=== PATIENT | female | born 1935 | race Caucasian/White ===

== ENCOUNTER 2020-11-13 20:09 | Observation (INO) | payer MEDICARE, BC ==
[2020-11-13] MEDS ORDERED: SODIUM CHLORIDE 0.9% 500 ML 500 ML IV STA (20:51)
[2020-11-13 21:50] LABS: Basophils # (A) 0.1 k/uL (0-0.2); Basophils % (A) 1 %; Eosinophils # (A) 0.4 k/uL (0-0.7); Eosinophils % (A) 6 %; HCT 38.5 % (34.0-46.0); HGB 13.3 gm/dL (11.4-16.0); Lymphocytes # (A) 1.7 k/uL (1.0-4.8); Lymphocytes % (A) 26 %; MCH 30.5 pg (25.0-35.0); MCHC 34.5 g/dL (31.0-37.0); MCV 88.4 fL (80.0-100.0); Monocytes # (A) 0.6 k/uL (0-1.0); Monocytes % (A) 8 %; Neutrophils % (A) 58 %; Platelet Count 177 k/uL (150-450); RBC 4.36 m/uL (3.80-5.40); RDW 13.3 % (11.5-15.5); WBC 6.8 k/uL (3.8-10.6)
--- NOTE | 2020-11-13 21:58 | XR ---
EXAMINATION: XR chest 1V portable DATE AND TIME: 11/13/2020 9:05 PM CLINICAL INDICATION: PHH; chest pain TECHNIQUE: AP upright portable COMPARISON: None FINDINGS: There is a coarse reticular pattern throughout the lung, having the radiographic appearance of chroni c interstitial lung change. No definite acute lung radiographic process. The pleural spaces are negative. The cardiac silhouette is not enlarged. The remainder of the mediastinal silhouette is unremarkable. The skeletal structures and soft tissues are negative for acute findings. IMPRESSION: No definite acute radiographic process.
[2020-11-13 22:06] LABS: ALT 18 U/L (4-34); AST 29 U/L (14-36); African American GFR (CKD) >90 (>60 ml/min/1.73 sqM); Albumin 4.5 g/dL (3.5-5.0); Alkaline Phosphatase 91 U/L (38-126); Anion Gap 7 mmol/L; Blood Urea Nitrogen 22 mg/dL (7-17); Calcium 9.8 mg/dL (8.4-10.2); Carbon Dioxide 28 mmol/L (22-30); Chloride 108 mmol/L (98-107); Glucose 111 mg/dL (74-99); Non-African American GFR(CKD) 79 (>60 ml/min/1.73 sqM); Potassium 3.8 mmol/L (3.5-5.1); Sodium 143 mmol/L (137-145); Total Bilirubin 0.7 mg/dL (0.2-1.3); Total Protein 7.4 g/dL (6.3-8.2)
[2020-11-13 22:33] LABS: D-Dimer 0.27 mg/L FEU (<0.60); Partial Thromboplastin Time 22.7 sec (22.0-30.0)
[2020-11-13] MEDS ORDERED: ACETAMINOPHEN TAB 325 MG TAB PO PRN (23:32)
[2020-11-13] MEDS ORDERED: NALOXONE 0.4 MG/ML 1 ML VIAL IV PRN (23:32)
--- NOTE | 2020-11-13 23:32 | ED ---
General Adult HPI - General Chief complaint: Headache Stated complaint: Not feeling right Time Seen by Provider: 11/13/20 20:31 Source: patient, family Mode of arrival: ambulatory Limitations: no limitations - History of Present Illness Initial comments: 84 year-old female patient with past medical history significant for hypertension and TIA presents to the emergency department for evaluation of chest tightness, shortness of breath, generalized weakness, and headache. Patient states symptoms started earlier today and did not resolve. States she became anxious and called her daughter to bring her to the emergency department. Patient states that the headache is posterior and dull. She denies any blurred or double vision. States she had some tingling to her bilateral hands and felt generally weak. States she was able to walk and use all extremities without difficulty. She states that her chest became somewhat tight and she was having some mild shortness of breath. She denies any recent fall or head injury. Denies any new medications. Patient denies any recent rash, cough, abdominal pain, nausea, vomiting, diarrhea, constipation, back pain, dizziness, hematuria, dysuria, urinary urgency, urinary frequency, or any other complaints. - Related Data Home Medications Medication Instructions Recorded Confirmed Aspirin EC [Ecotrin] 81 mg PO DAILY 09/30/14 09/30/14 Latanoprost 1 drop BOTH EYES HS 09/30/14 09/30/14 Previous Rx's Medication Instructions Recorded Hydrocodone/Acetaminophen [[place] 1 - 2 each PO Q6HR PRN #40 tab 10/02/14 5-325] Allergies Allergy/AdvReac Type Severity Reaction Status Date / Time No Known Allergies Allergy Verified 11/13/20 20:21 Review of Systems ROS Statement: Those systems with pertinent positive or pertinent negative responses have been documented in the HPI. ROS Other: All systems not noted in ROS Statement are negative. Past Medical History Past Medical History: Cancer, Deep Vein Thrombosis (DVT), GERD/Reflux, Osteoarthritis (OA) Additional Past Medical History / Comment(s): SKIN CA LEG., RT LOWER BACK PAIN, HX OF LYMES DISEASE. GLAUCOMA. History of Any Multi-Drug Resistant Organisms: None Reported Additional Past Surgical History / Comment(s): PHILLIP CATARACTS, D&C, MUSCLE BX. Past Anesthesia/Blood Transfusion Reactions: No Reported Reaction, Family History of Problems w/ Anesthesia Additional Past Anesthesia/Blood Transfusion Reaction / Comment(s): SISTER WOKE UP CONFUSED. Past Psychological History: No Psychological Hx Reported Smoking Status: Never smoker Past Alcohol Use History: Occasional Past Drug Use History: None Reported - Past Family History Sister(s) Family Medical History: Cancer Additional Family Medical History / Comment(s): KIDNEY CA General Exam Limitations: no limitations General appearance: alert, in no apparent distress, other (This is a well- developed, well-nourished elderly female patient in no acute distress. Vital signs upon presentation are temperature 97.9F, pulse 71, respirations 18, blood pressure 206/98, pulse ox 100% on room air.) Eye exam: Present: normal appearance, PERRL, EOMI. Absent: scleral icterus, conjunctival injection, nystagmus, periorbital swelling ENT exam: Present: normal exam, normal oropharynx, mucous membranes moist Respiratory exam: Present: normal lung sounds bilaterally. Absent: respiratory distress, wheezes, rales, rhonchi, stridor Cardiovascular Exam: Present: regular rate, normal rhythm, normal heart sounds. Absent: systolic murmur, diastolic murmur, rubs, gallop, clicks GI/Abdominal exam: Present: soft, normal bowel sounds. Absent: distended, tenderness, guarding, rebound, rigid Neurological exam: Present: alert, oriented X3, CN II-XII intact Expanded Speech: Present: fluid speech Cranial nerves: EOM's Intact: Normal, Nystagmus: Normal Motor strength exam: RUE: 5, LUE: 5, RLE: 5, LLE: 5 Psychiatric exam: Present: normal affect, normal mood Skin exam: Present: warm, dry, intact, normal color. Absent: rash Course Vital Signs 11/13/20 20:21 Temperature 97.9 F Pulse Rate 71 Respiratory 18 Rate Blood Pressure 206/98 O2 Sat by Pulse 100 Oximetry EKG Findings - EKG Comments: EKG Findings:: EKG obtained at 2137 shows sinus bradycardia with a sinus arrhythmia, right bundle branch block, left anterior fascicular block. Ventricular rate is 58, IL interval 168, QRS duration 136, QT 476, QTc 467. Medical Decision Making - Medical Decision Making 84-year-old female patient presents to the emergency Department with multiple complaints including generalized weakness, chest tightness, headache, shortness of breath. Physical examination was unremarkable. She is neurologically intact with no focal deficits. EKG was obtained and did show sinus bradycardia with a sinus arrhythmia and a bifasicular block. Labs reviewed and were unremarkable. We have no previous EKGs to compare. She'll be admitted to the hospital for serial troponin, cardiac monitoring, and further evaluation. She is agreeable this plan. Dr. Young is excepting. Case discussed by attending Dr. Castaneda. - Lab Data Result diagrams: 11/13/20 21:17 11/13/20 21:17 Lab Results 11/13/20 11/13/20 11/13/20 Range/Units 21:17 21:17 21:17 WBC 6.8 (3.8-10.6) k/uL RBC 4.36 (3.80-5.40) m/uL Hgb 13.3 (11.4-16.0) gm/dL Hct 38.5 (34.0-46.0) % MCV 88.4 (80.0-100.0) fL MCH 30.5 (25.0-35.0) pg MCHC 34.5 (31.0-37.0) g/dL RDW 13.3 (11.5-15.5) % Plt Count 177 (150-450) k/uL MPV 8.0 Neutrophils % 58 % Lymphocytes % 26 % Monocytes % 8 % Eosinophils % 6 % Basophils % 1 % Neutrophils # 4.0 (1.3-7.7) k/uL Lymphocytes # 1.7 (1.0-4.8) k/uL Monocytes # 0.6 (0-1.0) k/uL Eosinophils # 0.4 (0-0.7) k/uL Basophils # 0.1 (0-0.2) k/uL PT 11.0 (9.0-12.0) sec INR 1.0 (<1.2) APTT 22.7 (22.0-30.0) sec D-Dimer 0.27 (<0.60) mg/L FEU Sodium 143 (137-145) mmol/L Potassium 3.8 (3.5-5.1) mmol/L Chloride 108 H (98-107) mmol/L Carbon Dioxide 28 (22-30) mmol/L Anion Gap 7 mmol/L BUN 22 H (7-17) mg/dL Creatinine 0.71 (0.52-1.04) mg/dL Est GFR (CKD-EPI)AfAm >90 (>60 ml/min/1.73 sqM) Est GFR (CKD-EPI)NonAf 79 (>60 ml/min/1.73 sqM) Glucose 111 H (74-99) mg/dL Calcium 9.8 (8.4-10.2) mg/dL Magnesium 2.0 (1.6-2.3) mg/dL Total Bilirubin 0.7 (0.2-1.3) mg/dL AST 29 (14-36) U/L ALT 18 (4-34) U/L Alkaline Phosphatase 91 (38-126) U/L Troponin I (0.000-0.034) ng/mL Total Protein 7.4 (6.3-8.2) g/dL Albumin 4.5 (3.5-5.0) g/dL Influenza Type A (PCR) (Not Detectd) Influenza Type B (PCR) (Not Detectd) RSV (PCR) (Not Detectd) SARS-CoV-2 (PCR) (Not Detectd) 11/13/20 11/13/20 Range/Units 21:17 21:17 WBC (3.8-10.6) k/uL RBC (3.80-5.40) m/uL Hgb (11.4-16.0) gm/dL Hct (34.0-46.0) % MCV (80.0-100.0) fL MCH (25.0-35.0) pg MCHC (31.0-37.0) g/dL RDW (11.5-15.5) % Plt Count (150-450) k/uL MPV Neutrophils % % Lymphocytes % % Monocytes % % Eosinophils % % Basophils % % Neutrophils # (1.3-7.7) k/uL Lymphocytes # (1.0-4.8) k/uL Monocytes # (0-1.0) k/uL Eosinophils # (0-0.7) k/uL Basophils # (0-0.2) k/uL PT (9.0-12.0) sec INR (<1.2) APTT (22.0-30.0) sec D-Dimer (<0.60) mg/L FEU Sodium (137-145) mmol/L Potassium (3.5-5.1) mmol/L Chloride (98-107) mmol/L Carbon Dioxide (22-30) mmol/L Anion Gap mmol/L BUN (7-17) mg/dL Creatinine (0.52-1.04) mg/dL Est GFR (CKD-EPI)AfAm (>60 ml/min/1.73 sqM) Est GFR (CKD-EPI)NonAf (>60 ml/min/1.73 sqM) Glucose (74-99) mg/dL Calcium (8.4-10.2) mg/dL Magnesium (1.6-2.3) mg/dL Total Bilirubin (0.2-1.3) mg/dL AST (14-36) U/L ALT (4-34) U/L Alkaline Phosphatase (38-126) U/L Troponin I <0.012 (0.000-0.034) ng/mL Total Protein (6.3-8.2) g/dL Albumin (3.5-5.0) g/dL Influenza Type A (PCR) Not Detected (Not Detectd) Influenza Type B (PCR) Not Detected (Not Detectd) RSV (PCR) Not Detected (Not Detectd) SARS-CoV-2 (PCR) Not Detected (Not Detectd) - Radiology Data Radiology results: report reviewed, image reviewed One view x-ray of the chest is obtained. Report was reviewed in its entirety. Impression by Dr. Beau Champion shows no definite acute radiographic process. Disposition Clinical Impression: Chest tightness, Weakness Disposition: ADMITTED IP TO THIS [facility] Condition: Serious Referrals: Edward Melendrez MD [Primary Care Provider] - 1-2 days Decision to Admit Reason: Admit from EC Decision Date: 11/13/20 Decision Time: 23:32
--- NOTE | 2020-11-14 01:24 | P.HPIM ---
History of Present Illness H&P Date: 11/13/20 Chief Complaint: headache, tingling in bilateral hands 84 year old female with history of TIA (04/2020) COPD not on home oxygen , hypertension patient experienced sudden onset occipital headache, around 6 pm, associated with some tingling in her hands. for which she became really worried and anxious as it was similar to prior episode of TIA when she was found to have elevated blood pressure and had some difficulty walking at that time. she was concerned and because there was no improvement in her symptoms , she asked her daughter to get her to the ED after 2 hours of symptoms , to get evaluated. she denies any focal neuro deficits. except for bilateral tingling in her hands. since her recent diagnosis with TIA , she has been on lipitor , brilinta , and aspirin , she denies any GI bleeding she is currently feeling back to normal she denies any chest pain , trouble breathing, syncope, gi bleeding, nausea, vomiting, fever, chills, URI symptoms . in the ED, she was found to have elevated blood pressure. EKG showed no acute ST elevation, but without having recent EKG to compare, she is showing possible sinus arrhythmia and bradycardia blood work overall unremarkable Review of Systems Pertinent positives as noted in HPI. All other systems were reviewed and are negative Past Medical History Past Medical History: Cancer, Deep Vein Thrombosis (DVT), GERD/Reflux, Osteoarthritis (OA) Additional Past Medical History / Comment(s): SKIN CA LEG., RT LOWER BACK PAIN, HX OF LYMES DISEASE. GLAUCOMA. History of Any Multi-Drug Resistant Organisms: None Reported Additional Past Surgical History / Comment(s): PHILLIP CATARACTS, D&C, MUSCLE BX. Past Anesthesia/Blood Transfusion Reactions: No Reported Reaction, Family History of Problems w/ Anesthesia Additional Past Anesthesia/Blood Transfusion Reaction / Comment(s): SISTER WOKE UP CONFUSED. Past Psychological History: No Psychological Hx Reported Smoking Status: Never smoker Past Alcohol Use History: Occasional Past Drug Use History: None Reported - Past Family History Sister(s) Family Medical History: Cancer Additional Family Medical History / Comment(s): KIDNEY CA Medications and Allergies Home Medications Medication Instructions Recorded Confirmed Type Aspirin EC [Ecotrin] 81 mg PO DAILY 09/30/14 09/30/14 History Latanoprost 1 drop BOTH EYES HS 03/16/15 03/16/15 History Hydrocodone/Acetaminophen [[place] 1 - 2 each PO Q6HR PRN #40 tab 10/02/14 Rx 5-325] Allergies Allergy/AdvReac Type Severity Reaction Status Date / Time No Known Allergies Allergy Verified 11/13/20 20:21 Physical Exam Vitals: Vital Signs Temp Pulse Resp BP Pulse Ox 11/13/20 23:57 65 18 157/87 98 11/13/20 20:21 97.9 F 71 18 206/98 100 Intake and Output 11/13/20 11/13/20 11/14/20 14:59 22:59 06:59 Other: Weight 58.967 kg Constitutional: No acute distress, conversant, pleasant Eyes: Anicteric sclerae, moist conjunctiva, Pupils equal round reactive to light ENMT: NC/AT Oropharynx clear, no erythema, or exudates Neck: Supple, FROM, no masses, or JVD No carotid bruits No thyromegaly Lungs: Clear to auscultation Clear to percussion Normal respiratory effort, no accessory muscle use Cardiovascular: Heart regular in rate and rhythm, No murmurs, gallops, or rubs No peripheral edema Abdominal: Soft Nontender, no guarding, rebound or rigidity Abdomen moving with respiration Normoactive bowel sounds No hepatomegaly, No splenomegaly No palpable mass No abdominal wall hernia noted Skin: Normal temperature, tone, texture, turgor No induration No subcutaneous nodules No rash, lesions No ulcers Extremities: No digital cyanosis No clubbing Pedal pulses intact and symmetrical Radial pulses intact and symmetrical No calf tenderness Psychiatric: Alert and oriented to person, place Appropriate affect fair judgement Neuro Muscles Strength 5/5 in all 4 extremities Sensation to light touch grossly present throughout Cranial nerves II-XII grossly intact No focal sensory deficits Lymphatics: no palpable cervical or supraclavicular , or inguinal lymph nodes Results CBC & Chem 7: 11/13/20 21:17 11/13/20 21:17 Labs: Abnormal Lab Results - Last 24 Hours (Table) 11/13/20 Range/Units 21:17 Chloride 108 H (98-107) mmol/L BUN 22 H (7-17) mg/dL Glucose 111 H (74-99) mg/dL Assessment and Plan Assessment: malignant hypertension (with headache), monitor for any focal neuro deficits close monitor of blood pressure clonidine PRN for systolic blood pressure >180 resume home BP meds follow up renal function telemetry monitor COPD , compensated , not on home oxygen PRN duoneb PT eval verify home meds Surrogate decision-maker: patient daughter Gypsy [phone] CODE STATUS:no code DVT prophylaxis: mechanical Discussed with: Patient, ER Anticipated length of stay <than [address]: home A total of 70 minutes was spent on the care of this complex patient more than 50% of the time was spent in counseling and care coordination.
[2020-11-14] MEDS ORDERED: cloNIDine HCL 0.2 MG TAB PO PRN (01:25)
[2020-11-14 05:21] LABS: Basophils % (A) 1 %; Eosinophils # (A) 0.2 k/uL (0-0.7); Eosinophils % (A) 5 %; HCT 33.7 % (34.0-46.0); HGB 11.7 gm/dL (11.4-16.0); Lymphocytes # (A) 1.1 k/uL (1.0-4.8); Lymphocytes % (A) 23 %; MCH 30.5 pg (25.0-35.0); MCHC 34.7 g/dL (31.0-37.0); MCV 88.1 fL (80.0-100.0); Monocytes # (A) 0.4 k/uL (0-1.0); Monocytes % (A) 8 %; Neutrophils # (A) 3.2 k/uL (1.3-7.7); Neutrophils % (A) 63 %; Platelet Count 162 k/uL (150-450); RBC 3.83 m/uL (3.80-5.40); RDW 13.4 % (11.5-15.5); WBC 5.1 k/uL (3.8-10.6)
[2020-11-14 05:38] LABS: African American GFR (CKD) >90 (>60 ml/min/1.73 sqM); Anion Gap 5 mmol/L; Blood Urea Nitrogen 16 mg/dL (7-17); Carbon Dioxide 26 mmol/L (22-30); Chloride 110 mmol/L (98-107); Glucose 114 mg/dL (74-99); Non-African American GFR(CKD) 83 (>60 ml/min/1.73 sqM); Potassium 3.4 mmol/L (3.5-5.1); Sodium 141 mmol/L (137-145)
[2020-11-14] MEDS ORDERED: Potassium Replacement Protocol 1 EACH MISC MISCELLANE PRN (07:29)
[2020-11-14] MEDS: ASPIRIN 81 MG PO SCH (08:43)
[2020-11-14] MEDS: ATORVASTATIN 40 MG TAB PO SCH (08:44)
[2020-11-14] MEDS: POTASSIUM CHLORIDE 10 MEQ in WATER FOR INJECTION 1 100ML.BAG IVPB SCH ×2 (08:44→09:49)
[2020-11-14] MEDS ORDERED: amLODIPine 5 MG TAB PO SCH (09:00)
[2020-11-14] MEDS ORDERED: POTASSIUM CHLORIDE ER 20 MEQ TAB.ER PO STA (09:52)
--- NOTE | 2020-11-14 10:02 | P.PN ---
Subjective Progress Note Date: 11/14/20 Patient is awake and alert. She is very vague in describing her symptoms. She said that she is having a mild headache in the back of her head associated with the ''swoosh'' feeling or noise that she can hear in both ears. She denies any dizziness or lightheadedness. No nausea or vomiting. Patient denies any numbness or tingling anywhere. She has a prior history of a TIA and is maintained on aspirin and Brillenta. 1. Hypertensive urgency, exact etiology unclear. Patient said that she is aching her medications as prescribed at home. Her med rec was not completed this morning so I ordered a one-time dose of Norvasc 5 mg. Blood pressure currently well controlled. structural engineering technician was able to reconcile her medication and patient is on losartan 50 mg daily at home which will be resumed. Continue to monitor blood pressure closely. 2. Occipital headache with a ''swoosh''feeling in her ear: I would obtain CT angiogram of the head and neck for further evaluation. Neurology consulted. 3. History of TIA on dual antiplatelet therapy 4. Underlying COPD with no evidence of exacerbation 5. DVT prophylaxis with subcu Lovenox 6. CODE STATUS: Patient is no code, discussed with the admitting physician Objective - Vital Signs Vital signs: Vital Signs Temp 97.8 F 11/14/20 08:00 Pulse 72 11/14/20 08:00 Resp 16 11/14/20 08:00 BP 139/67 11/14/20 08:00 Pulse Ox 94 L 11/14/20 08:00 Intake & Output 11/13/20 11/14/20 11/14/20 18:59 06:59 18:59 Intake Total 10 Balance 10 Weight 57.2 kg Intake: IV 10 0.9 10 Other: Voiding Method Toilet # Voids 1 - Exam General: The patient is awake and alert, in no distress Eye: there is normal conjunctiva bilaterally. Neck: The neck is supple, there is no JVD. Cardiovascular: Normal S1-S2, no S3-S4, no murmurs. Respiratory: Lungs clear to auscultation bilaterally Gastrointestinal: Abdomen is soft, nontender Musculoskeletal: There is no pedal edema. Neurological:. Speech is normal. Skin: Skin is warm and dry - Labs CBC & Chem 7: 11/14/20 04:21 11/14/20 04:21 Labs: Abnormal Lab Results - Last 24 Hours (Table) 11/13/20 11/14/20 11/14/20 Range/Units 21:17 04: 04:21 Hct 33.7 L (34.0-46.0) % Potassium 3.4 L (3.5-5.1) mmol/L Chloride 108 H 110 H (98-107) mmol/L BUN 22 H (7-17) mg/dL Glucose 111 H 114 H (74-99) mg/dL Assessment and Plan Assessment: This is a 84-year-old female with past medical history noted below that presented to the emergency room with vague symptoms of occipital headache and tingling in both hands. Patient was evaluated in the ER and currently admitted to the hospital for further management of her medical problems noted below.
--- NOTE | 2020-11-14 12:22 | CT ---
EXAMINATION TYPE: CT angio head neck DATE OF EXAM: 11/14/2020 HISTORY: Headache, Weakness COMPARISON: None CT DLP: 1473.2 mGycm. Automated Exposure Control for Dose Reduction was Utilized. TECHNIQUE: CTA scan of the neck is performed without and with IV Contrast, patient injected with 65 mL of Isovue 370, axial images are obtained, coronal and sagittal reformatted images are reviewed. Th ree-D reconstructed images are created on an independent workstation and reviewed. FINDINGS: There is generalized degenerative change. Intracranial atherosclerotic changes are noted. N onspecific white matter changes most typical remote ischemia. Vertebral basilar system is patent. Intracranially there is enhancement of the distal carotid arterie s as well as the middle cerebral and anterior cerebral arteries. No sizable aneurysm. No vascular mal formation. Aortic arch appears to be patent. Subcentimeter thyroid no nodules are seen. Origins of the great ves sels appear to be patent. There is atherosclerotic plaque at the level of the carotid bifurcations wi th no significant stenosis. Dental artifact obscures the soft tissues of the neck. Lung apices demons trate apical pleural thickening greater on the right with scattered groundglass changes. Multilevel d egenerative change of the cervical spine facet arthropathy. IMPRESSION: 1. No significant stenosis involving the carotid bifurcation 2. No evidence of aneurysm or vascular malformation. 3. Biapical pleural thickening asymmetrically greater on the right. Groundglass changes in the lungs could been the basis of respiratory motion or pneumonitis correlate clinically.
[2020-11-14] MEDS: ENOXAPARIN 40 MG/0.4 ML SYRINGE SQ SCH (12:37)
--- NOTE | 2020-11-14 12:47 | ECHOF ---
Referral Reason:lightheadedness MEASUREMENTS -------- HEIGHT: 165.1 cm WEIGHT: 61.7 kg BP: RVIDd: 3.4 cm (< 3.3) IVSd: 1.2 cm (0.6 - 1.1) LVIDd: 3.6 cm (3.9 - 5.3) LVPWd: 1.5 cm (0.6 - 1.1) IVSs: 1.5 cm LVIDs: 1.9 cm LVPWs: 1.7 cm Ao Diam: 3.2 cm (2.0 - 3.7) AV Cusp: 1.8 cm (1.5 - 2.6) RAP: 5.00 mmHg RVSP: 14.60 mmHg FINDINGS -------- Sinus rhythm. This was a technically difficult study with suboptimal views. All Views obtained subcostal. LV size, wall thickness and systolic function are normal, with an EF greater than 55%. The left reginaldo tricular size is normal. The right ventricle is normal in size. The left atrial size is normal. The right atrial size is normal. The aortic valve was not well visualized. The mitral valve leaflets are mildly thickened. Mild mitral regurgitation is present. Mild tricuspid regurgitation present. Right ventricular systolic pressure is normal at < 35 mmHg. The pulmonic valve was not well visualized. The aortic root size is normal. There is no pericardial effusion. CONCLUSIONS -------- 1. This was a technically difficult study with suboptimal views. 2. All Views obtained subcostal. 3. LV size, wall thickness and systolic function are normal, with an EF greater than 55%. 4. The left atrial size is normal. 5. The aortic valve was not well visualized. 6. Mild mitral regurgitation is present. 7. Mild tricuspid regurgitation present. 8. There is no pericardial effusion. GEOLOGY FACULTY MEMBER: Connie Rodriguez RDCS
--- NOTE | 2020-11-14 14:25 | P.CNNES ---
History of Present Illness Consult date: 11/14/20 Requesting physician: Shanta Marcos Reason for Consult: headache and ringing in ears History of Present Illness: This is a 84-year-old woman with medical history of present ischemic attack on April 2020, COPD, DVT, which she presented to the hospital on 11/13/2020 for sudden onset of occipital headache associate with some tingling in her hands that started at 6 PM on 11/13/2020. Patient is a poor historian and some of the history is obtained from medical records. According to the patient she's been having headache in the occipital region it seems bilateral and she cannot tell me for how long per the primary team's note it's started 2 days ago but the patient stated it could've been 2 days ago or last 1 week or 2 weeks. She said the headache is well 1-2/10, dull, doesn't radiate. Denies any photophobia, phonophobia and nausea or vomiting or visual disturbance. She has this whooshing sound. Upon asking her if she had any tingling of the hands, patient's wishes to get about it she said I don't know Dr. then upon asking her the if she had any numbness or tingling and she said yes and that was possibly 2 days ago or the last 1 week. She denies of any focal weakness, numbness. Denies any difficulty getting her words out swallowing. She stated that her blood pressure fluctuates. Patient on medication is Brilinta 90 mg 1 tablet twice a day, aspirin 81 mg daily, Lipitor 40 mg daily. Upon asking the patient symptoms of her transient ischemic attack in April 2020 she said that she doesn't remember and she said that she was in the hospital and she was told she had transient ischemic attack. Per the ED team note, the patient had headache in occipital region with some tingling of hand. Patient symptoms didn't resolve so as a result the patient the asked her daughter to get her to the ED after 2 hours her symptoms to be evaluated. Patient stated that she had similar episodes in the past and she was told she had a TIA and was found to have elevated blood pressure. Also last time she had difficulty walking. Because her symptoms do not resolve after 2 hours she decided to come to the hospital. Some other workup in the hospital consisted of: Initial vital signs his blood pressure of 206/98, heart rate of 71, temperature of 97.9 Fahrenheit oral, respiratory of 18, pulse ox of 100% at room air. Patient repeated blood pressure is 157/87 but then she had further blood pressure check up and was 196/75. CT angiography of the head and neck was reported as no significant stenosis involving the carotid bifurcation. No evidence of aneurysm or vascular malformation. Biapical pleural thickening asymmetrical greater on the right. Groundglass changes in the long could be on the basis of respiratory motion or pneumonitis correlate clinically 2-D echo was reported as this was technically difficult study with suboptimal views. Left ventricular size, wall thickness and systolic function are normal with ejection fracture greater than 55%. Left atrial size is normal. Basic electrolyte panel shows that the glucose was 111 otherwise it was reviewed and nothing was significant. As well as the CBC was reviewed and nothing was significant that. SARS-COV-2 PCR is not detected. Review of Systems Review of system: The 12 point system was reviewed and apparent positive and negative per HPI. Past Medical History Past Medical History: Cancer, Deep Vein Thrombosis (DVT), GERD/Reflux, Osteoarth ritis (OA) Additional Past Medical History / Comment(s): SKIN CA LEG., RT LOWER BACK PAIN, HX OF LYMES DISEASE. GLAUCOMA. History of Any Multi-Drug Resistant Organisms: None Reported Additional Past Surgical History / Comment(s): PHILLIP CATARACTS, D&C, MUSCLE BX. Past Anesthesia/Blood Transfusion Reactions: No Reported Reaction, Family History of Problems w/ Anesthesia Additional Past Anesthesia/Blood Transfusion Reaction / Comment(s): SISTER WOKE UP CONFUSED. Past Psychological History: No Psychological Hx Reported Smoking Status: Never smoker Past Alcohol Use History: Occasional Past Drug Use History: None Reported - Past Family History Sister(s) Family Medical History: Cancer Additional Family Medical History / Comment(s): KIDNEY CA Medications and Allergies Home Medications Medication Instructions Recorded Confirmed Type Aspirin EC [Ecotrin] 81 mg PO DAILY 09/30/14 11/14/20 History Latanoprost 1 drop BOTH EYES HS 09/30/14 11/14/20 History Atorvastatin [Lipitor] 40 mg PO HS 11/14/20 11/14/20 History Losartan Potassium 50 mg PO DAILY 11/14/20 11/14/20 History Ticagrelor [Brilinta] 90 mg PO BID 11/14/20 11/14/20 History Allergies Allergy/AdvReac Type Severity Reaction Status Date / Time No Known Allergies Allergy Verified 11/14/20 08:38 Physical Examination - Vital Signs Vital Signs: Vital Signs Temp Pulse Pulse Resp BP BP BP 11/14/20 13:08 98.5 F 11/14/20 12:45 78 17 138/71 11/14/20 08:00 97.8 F 72 16 139/67 11/14/20 07:26 11/14/20 04:00 97.6 F 76 18 147/76 11/14/20 02:08 182/79 181/99 11/14/20 02:00 74 18 11/14/20 01:39 97.5 F L 74 18 196/75 11/13/20 23:57 65 18 157/87 11/13/20 20:21 97.9 F 71 18 206/98 Pulse Ox 11/14/20 13:08 11/14/20 12:45 97 11/14/20 08:00 94 L 11/14/20 07:26 96 11/14/20 04:00 97 11/14/20 02:08 11/14/20 02:00 11/14/20 01:39 98 11/13/20 23:57 98 11/13/20 20:21 100 Intake and Output 11/13/20 11/14/20 11/14/20 22:59 06:59 14:59 Intake Total 10 Balance 10 Intake: IV 10 0.9 10 Other: Voiding Method Toilet # Voids 1 Weight 58.967 kg 57.2 kg GENERAL: The patient is lying in bed and is not in acute distress. CHEST: The heart rate is regular rate rhythm. No murmurs to auscultation. No carotid bruit bilaterally. LUNG: Clear to auscultation bilaterally no wheezing noted throughout. Not labored breathing. ABDOMEN/GI: Bowel sounds present in all 4 quadrants. No tenderness to palpation throughout. NEUROLOGICAL: Higher mental function: The patient is awake, alert, oriented to self, place and time. Patient is following commands. No aphasia and no neglect. Cranial nerves: The pupils are round, equal and reactive to light and accommodation. Visual zamorano are full to confrontation throughout. Extraocular movement is intact no nystagmus is noted. Facial sensation is normal to touch throughout. The facial strength is normal throughout. Hearing is decreased bilaterally to hand rub. Tongue is midline and moved [id number] without any difficulty. No dysarthria is noted. Shoulder shrug is normal bilaterally. Motor: Gait: Patient was unsteady walking. The strength is 4+ to 5-/5 over the left knee extension. Otherwise 5 over 5 throughout. Normal tone and bulk. Cerebellum: Normal finger to nose bilaterally. Sensation: Sensation is normal to touch throughout. Reflexes (right/left): Patellar are 3+ bilaterally. Otherwise 2+ throughout. Plantars are mute bilaterally. Results Coagulation study: PT 11, INR 1.0, PTT: 2.7 - Laboratory Findings CBC and BMP: 11/14/20 04:21 11/14/20 04:21 Abnormal Lab Findings: Abnormal Labs 11/13/20 11/14/20 11/14/20 21:17 04:21 04:21 Hct 33.7 L Potassium 3.4 L Chloride 108 H 110 H BUN 22 H Glucose 111 H 114 H Assessment and Plan Assessment: * Patient cephalgia over the occipital region, tingling of hands, unsteady gait, whoosing sound of both years and left knee extension weakness (patient is a poor historian so could not find out exactly her symptoms and they started). Rule out stroke or other intracranial process. * Uncontrolled hypertension * History of TIA was similar presentation as above (04/2020) and that time her blood pressure was uncontrolled. I am not sure if she truly had TIA. * COPD Plan: CT angiography of the head and neck was reported as no significant stenosis involving the carotid bifurcation. No evidence of aneurysm or vascular malformation. Biapical pleural thickening asymmetrical greater on the right. Groundglass changes in the long could be on the basis of respiratory motion or pneumonitis correlate clinically 2-D echo was reported as this was technically difficult study with suboptimal views. Left ventricular size, wall thickness and systolic function are normal with ejection fracture greater than 55%. Left atrial size is normal. On Brilinta 90 mg 1 tablet twice a day, aspirin 81 mg daily, Lipitor 40 mg daily. After MRI Brain will make further recommendation regarding her antiplatelets. I ordered MRI Brain. Physical therapy is consulted. I consulted occupational therapy. Placed on every 4 hours neuro checks. Cardiology is consulted. Regarding the management of patient's hypertension, please avoid more than 15% drop and it within 24 hours. We'll defer the management to the primary team. The plan is discussed with the patient's nurse. Thank you for the consultation. Altaf Shah MD Neuro-Hospitalist Time with Patient: Greater than 30
--- NOTE | 2020-11-14 15:03 | P.CRDCN ---
History of Present Illness History of present illness: This is am 84 year-old female patient with past medical history significant for hypertension and TIA Fall 2019. She does not follow with a magazine feeder. We are being consulted for chest pain. Patient presents to the emergency department for evaluation of headache. Patient states yesterday in the afternoon started having a' "whooshing" sound in her bilateral ears and a dull ache in the back of her head. She had mild shortness of breath. She states that this was different from her TIA in the fall of 2019. At that time when she was walking she felt as if she was "walking on a cloud, taking big giant steps". She denies chest discomfort, palpitations, lightheadedness, dizziness, double vision, feelings of presyncope. Denies symptoms of orthopnea or PND. After her TIA she was prescrib ed aspirin and brilinta. She is unaware of what medications she takes for her blood pressure. She denies smoking or alcohol use. Denies history of MT, Diabetes, dyslipidemia. She has never had a cardiac workup. Denies family history of cardiac disease. On admission, patient was hypertensive. EKG showed sinus bradycardia HR 58, with right bundle branch block. DIAGNOSTICS Telemetry tracings indicate sinus mechanism heart rate 60s, no sign of arrhythmia Chest xray no acute cardiopulmonary process Laboratory reviewed, troponin negative 3, sodium 141, d-dimer 0.27, potassium 3.4, renal function within normal limits, magnesium 2.0, COVID-19 negative Current cardiac medications include losartan 50 mg daily, Brilinta 90 mg twice a day, aspirin 81 mg daily REVIEW OF SYSTEMS At the time of my exam: CONSTITUTIONAL: Denies fever or chills. CARDIOVASCULAR: Denies chest pain, shortness of breath, orthopnea, PND or palpitations. RESPIRATORY: Denies cough. GASTROINTESTINAL: Denies abdominal pain, diarrhea, constipation, nausea or vomiting. MUSCULOSKELETAL: Denies myalgias. NEUROLOGIC: Headache, bilateral ear changes Denies numbness, tingling, or weakness. ENDOCRINE: Denies fatigue, weight change, polydipsia or polyurina. GENITOURINARY: Denies burning, hematuria or urgency with micturation. HEMATOLOGIC: Denies history of anemia or bleeding. PHYSICAL EXAMINATION Blood pressure 138/71 heart rate 78 afebrile and maintaining oxygen saturation 97% on room air CONSTITUTIONAL: No apparent distress. HEENT: Head is normocephalic. Pupils are equal, round. Sclerae anicteric. Mucous membranes of the mouth are moist. No JVD. No carotid bruit. CHEST EXAMINATION: Lungs are clear to auscultation. No chest wall tenderness is noted on palpation or with deep breathing. HEART EXAMINATION: Regular rate and rhythm. S1, S2 heard. No murmurs, gallops or rub. ABDOMEN: Soft, nontender. Positive bowel sounds. EXTREMITIES: 2+ peripheral pulses, no lower extremity edema and no calf tenderness. NEUROLOGIC EXAMINATION: Patient is awake, alert and oriented x3. ASSESSMENT Hypertension History of TIA Headache, unknown etiology PLAN Patient symptoms do not appear to be cardiac related at this time. She denies any chest discomfort. EKG with no signs of ischemia. Cardiac enzymes negative Recommend Neurology consult Echocardiogram reviewed, EF greater than 55%, no wall motion abnormalities,mild MR, mild TR At this time, no further cardiology recommendations. Patient's BLood pressure has improved We will sign off at this time, please reach out with any other questions or concerns. Nurse Practitioner note has been reviewed, I agree with a documented findings and plan of care. Patient was seen and examined. Past Medical History Past Medical History: Cancer, Deep Vein Thrombosis (DVT), GERD/Reflux, Osteoarthritis (OA) Additional Past Medical History / Comment(s): SKIN CA LEG., RT LOWER BACK PAIN, HX OF LYMES DISEASE. GLAUCOMA. History of Any Multi-Drug Resistant Organisms: None Reported Additional Past Surgical History / Comment(s): PHILLIP CATARACTS, D&C, MUSCLE BX. Past Anesthesia/Blood Transfusion Reactions: No Reported Reaction, Family His tory of Problems w/ Anesthesia Additional Past Anesthesia/Blood Transfusion Reaction / Comment(s): SISTER WOKE UP CONFUSED. Past Psychological History: No Psychological Hx Reported Smoking Status: Never smoker Past Alcohol Use History: Occasional Past Drug Use History: None Reported - Past Family History Sister(s) Family Medical History: Cancer Additional Family Medical History / Comment(s): KIDNEY CA Medications and Allergies Home Medications Medication Instructions Recorded Confirmed Type Aspirin EC [Ecotrin] 81 mg PO DAILY 09/30/14 11/14/20 History Latanoprost 1 drop BOTH EYES HS 09/30/14 11/14/20 History Atorvastatin [Lipitor] 40 mg PO HS 11/14/20 11/14/20 History Losartan Potassium 50 mg PO DAILY 11/14/20 11/14/20 History Ticagrelor [Brilinta] 90 mg PO BID 11/14/20 11/14/20 History Allergies Allergy/AdvReac Type Severity Reaction Status Date / Time No Known Allergies Allergy Verified 11/14/20 08:38 Physical Exam Vitals: Vital Signs Temp Pulse Pulse Resp BP BP BP 11/14/20 04:00 97.6 F 76 18 147/76 11/14/20 02:08 182/79 181/99 11/14/20 02:00 74 18 11/14/20 01:39 97.5 F L 74 18 196/75 11/13/20 23:57 65 18 157/87 11/13/20 20:21 97.9 F 71 18 206/98 Pulse Ox 11/14/20 04:00 97 11/14/20 02:08 11/14/20 02:00 11/14/20 01:39 98 11/13/20 23:57 98 11/13/20 20:21 100 Intake and Output 11/13/20 11/14/20 11/14/20 22:59 06:59 14:59 Intake Total 10 Balance 10 Intake: IV 10 0.9 10 Other: Voiding Method Toilet # Voids 1 Weight 58.967 kg 57.2 kg Results 11/14/20 04:21 11/14/20 04:21 Cardiac Enzymes 11/13/20 11/13/20 11/14/20 Range/Units 21:17 21:17 00:54 AST 29 (14-36) U/L Troponin I <0.012 <0.012 (0.000-0.034) ng/mL 11/14/20 Range/Units 04: AST (14-36) U/L Troponin I <0.012 (0.000-0.034) ng/mL Coagulation 11/13/20 Range/Units 21:17 PT 11.0 (9.0-12.0) sec APTT 22.7 (22.0-30.0) sec CBC 11/13/20 11/14/20 Range/Units 21:17 04:21 WBC 6.8 5.1 (3.8-10.6) k/uL RBC 4.36 3.83 (3.80-5.40) m/uL Hgb 13.3 11.7 (11.4-16.0) gm/dL Hct 38.5 33.7 L (34.0-46.0) % Plt Count 177 162 (150-450) k/uL Comprehensive Metabolic Panel 11/13/20 11/14/20 Range/Units 21:17 04:21 Sodium 143 141 (137-145) mmol/L Potassium 3.8 3.4 L (3.5-5.1) mmol/L Chloride 108 H 110 H (98-107) mmol/L Carbon Dioxide 28 26 (22-30) mmol/L BUN 22 H 16 (7-17) mg/dL Creatinine 0.71 0.62 (0.52-1.04) mg/dL Glucose 111 H 114 H (74-99) mg/dL Calcium 9.8 9.0 (8.4-10.2) mg/dL AST 29 (14-36) U/L ALT 18 (4-34) U/L Alkaline Phosphatase 91 (38-126) U/L Total Protein 7.4 (6.3-8.2) g/dL Albumin 4.5 (3.5-5.0) g/dL Current Medications Generic Name Dose Route Start Last Admin Trade Name Freq PRN Reason Stop Dose Admin Acetaminophen 650 mg 11/13/20 23:32 Acetaminophen Tab 325 Mg Tab PO Q6HR PRN Mild Pain or Fever > 100.5 Aspirin 81 mg 11/14/20 09:00 Aspirin 81 Mg PO DAILY [facility] Atorvastatin Calcium 40 mg 11/14/20 09:00 Atorvastatin 40 Mg Tab PO DAILY [facility] Clonidine 0.2 mg 11/14/20 01:25 11/14/20 02:44 Clonidine Hcl 0.2 Mg Tab PO 0.2 mg TID PRN Administration Blood Pressure - High Naloxone HCl 0.2 mg 11/13/20 23:32 Naloxone 0.4 Mg/Ml 1 Ml Vial IV Q2M PRN Opioid Reversal Intake and Output 11/13/20 11/14/20 11/14/20 22:59 06:59 14:59 Intake Total 10 Balance 10 Intake: IV 10 0.9 10 Other: Voiding Method Toilet # Voids 1 Weight 58.967 kg 57.2 kg 11/14/20 04:21 11/14/20 04:21
--- NOTE | 2020-11-14 17:08 | MR ---
EXAMINATION TYPE: MR brain wo/w con DATE OF EXAM: 11/14/2020 COMPARISON: None HISTORY: Headache, unsteady gait, whoosing sound. CONTRAST: Standard multiplanar, multisequence MRI departmental protocol utilizing 6 mL intravenous Gadavist anabelle olinium contrast. There is cerebral atrophy. There is no mass effect nor midline shift. There is no sign of intracrania l hemorrhage. There is some thinning of the corpus callosum. The diffusion images show no evidence of an acute infarct. There is patchy increased signal on the T2 and FLAIR images in the periventricular white matter. Ther e is coalescent signal adjacent to the ventricles and discrete foci at the kumar-white matter junction both cerebral hemispheres. Total number is approximately 25 and these mostly measure less than 5 mm. Sella turcica is normal. Brainstem is intact. Cerebellum is intact. There is no pathologic enhancement. There is normal enhancement of the venous sinuses. IMPRESSION: Cerebral atrophy. White matter signal changes adjacent to the ventricles could relate to some demyeli nating disease. More peripheral white matter foci could relate to chronic small vessel ischemia. No e vidence of cortical infarct.
[2020-11-14] MEDS: TICAGRELOR 90 MG TAB PO SCH (20:08)
[2020-11-14] MEDS ORDERED: ATORVASTATIN 40 MG TAB PO SCH (21:00)
[2020-11-14] MEDS ORDERED: LATANOPROST 0.005% OPHTH DROPS 2.5 ML BTL BOTH EYES SCH (21:00)
[2020-11-15] MEDS: ATORVASTATIN 40 MG TAB PO SCH (08:18)
[2020-11-15] MEDS: TICAGRELOR 90 MG TAB PO SCH (08:18)
[2020-11-15] MEDS: ASPIRIN 81 MG PO SCH (08:19)
[2020-11-15] MEDS: ENOXAPARIN 40 MG/0.4 ML SYRINGE SQ SCH (08:19)
--- NOTE | 2020-11-15 08:27 | CT ---
EXAMINATION TYPE: CT cervical spine wo con DATE OF EXAM: 11/15/2020 COMPARISON: None HISTORY: unsteady gait and left leg weakness CT DLP: 356.2 mGycm Automated exposure control for dose reduction was used. TECHNIQUE: CT scan of the cervical spine is obtained without contrast, axial images are obtained, sa gittal and coronal reformatted images are also reviewed. FINDINGS: The craniovertebral junction relationships and prevertebral soft tissues are normal. The cervical vertebral segments are normal in both height and alignment and there is no fracture or s ubluxation. The disc spaces are well-maintained in height. There is no significant bony neural foraminal encroach ment cervical region. Spinal canal is normal. There is mild degeneration of the facet joints throughout the cervical region the uncovertebral joint s are intact. The paraspinal soft tissues are unremarkable IMPRESSION: Minimal facet degeneration with no other significant abnormality seen.
[2020-11-15 08:32] LABS: Calcium 9.8 mg/dL (8.4-10.2); Potassium 4.7 mmol/L (3.5-5.1)
[2020-11-15 08:53] VITALS: RESP 20
[2020-11-15] MEDS ORDERED: LOSARTAN 50 MG TAB PO SCH (09:00)
[2020-11-15 12:08] VITALS: BP 147/70; PULSE 90; TEMP 98.6
--- NOTE | 2020-11-15 18:24 | P.DS ---
Providers Date of admission: 11/13/20 23:35 Expected date of discharge: 11/15/20 Attending physician: Erica Young MD Consults: 11/13/20 23:32 Consult Physician Routine Consulting Provider: [facility] Consult Reason/Comments: Chest tightness; abn ekg Do you want consulting provider notified?: Yes 11/14/20 09:56 Consult Physician Routine Consulting Provider: Altaf Shah Consult Reason/Comments: Headache, ringing ears Do you want consulting provider notified?: Yes Primary care physician: Edward Melendrez Hospital Course: Discharge Diagnosis: Hypertensive urgency Acute headache History of TIA on dual antiplatelet therapy COPD without exacerbation Hospital Course: Patient is 84-year-old female with a history of TIA (05/06), COPD not on home O2, and hypertension who presented to the emergency department with complaints of sudden onset occipital headache at around 6 PM associated with tingling in her hands. The ER she was found have an elevated blood pressure of 206/98. No significant laboratory abnormalities. Chest x-ray showed no acute process. She was admitted for hypertensive urgency with headache and was started on when necessary clonidine for blood pressure greater than 180, initially her home blood pressure medications were resumed. The next morning she continued to have a mild headache. CT of the head and neck was ordered which demonstrated no significant stenosis of the carotid bifurcation with no evidence of aneurysm or vascular malformation. She underwent an echocardiogram which showed an ejection fraction of 55% but had poor visualization of the aortic valve and demonstrated mild MR and TR. She was seen by neurology who felt she likely had a headache related to elevated blood pressures. She underwent an MRI brain which showed no signs of acute stroke but did demonstrate white matter signal changes adjacent to the ventricles. She underwent a CT neck which demonstrated minimal facet degeneration. Her blood pressure remained controlled with an additional dose of Norvasc. She was determined stable for discharge. Norvasc 2.5 mg was added to her Cozaar. Follow-up: Check blood pressures twice daily and Make a log for Dr. Melendrez, follow-up with Dr. Melendrez next week, follow-up with neurology for recurrent symptoms Patient seen and examined at bedside. Headache is improved but still not quite resolved. Feeling well. Asking to go home. Vital signs reviewed and stable. General: non toxic, no distress, appears at stated age Derm: warm, dry Head: atraumatic, normocephalic, symmetric Eyes: EOMI, no lid lag, anicteric sclera Mouth: no lip lesion, mucus membranes moist Cardiovascular: S1S2 reg, no murmur, positive posterior tibial pulse bilateral, Lungs: CTA bilateral, no rhonchi, no rales , no accessory muscle use Abdominal: soft, nontender to palpation, no guarding, no appreciable organomegaly Ext: no gross muscle atrophy, no edema, no contractures Neuro: CN II-XI grossly intact, no focal neuro deficits Psych: Alert, oriented, appropriate affect A total of 25 minutes of time were spent preparing this complex discharge summary . Patient Condition at Discharge: Stable Plan - Discharge Summary Discharge Rx Participant: No New Discharge Prescriptions: New amLODIPine [Norvasc] 2.5 mg PO DAILY #30 tablet Continue Latanoprost 1 drop BOTH EYES HS Aspirin EC [Ecotrin Low Dose] 81 mg PO DAILY Ticagrelor [Brilinta] 90 mg PO BID Atorvastatin [Lipitor] 40 mg PO HS Losartan Potassium 50 mg PO DAILY Discharge Medication List Aspirin EC [Ecotrin Low Dose] 81 mg PO DAILY 09/30/14 [History] Latanoprost 1 drop BOTH EYES HS 09/30/14 [History] Atorvastatin [Lipitor] 40 mg PO HS 11/14/20 [History] Losartan Potassium 50 mg PO DAILY 11/14/20 [History] Ticagrelor [Brilinta] 90 mg PO BID 11/14/20 [History] amLODIPine [Norvasc] 2.5 mg PO DAILY #30 tablet 11/15/20 [Rx] Follow up Appointment(s)/Referral(s): Edward Melendrez MD [Primary Care Provider] - 1-2 days (call office when open to make follow up appointment) Elva Etienne MD [REFERRING] - 2 Weeks (call office when open to make follow up appointment) Ubaldo Douglas MD [STAFF PHYSICIAN] - 2 Weeks (call office when open to make follow up appointment) Patient Instructions/Handouts: Heart Healthy Diet (DC) Activity/Diet/Wound Care/Special Instructions: Activity: as tolerated Diet: heart healthy Special Instructions: Take blood pressure twice daily and monitor if top number is greater than 180 or bottom number is greater than [address] Melendrez office Discharge Disposition: HOME SELF-CARE
== END 2020-11-15 13:30 | disposition home or self-care (01) ==
LOC: EC 20:09 → 3SCARD 23:35
PROVIDERS: ADMIT Internal Medicine; ATTEND Internal Medicine
DX: I16.0 Hypertensive urgency (principal); E87.6 Hypokalemia; I44.4 Left anterior fascicular block; R00.1 Bradycardia, unspecified; J44.9 Chronic obstructive pulmonary disease, unspecified; K21.9 Gastro-esophageal reflux disease without esophagitis; M19.90 Unspecified osteoarthritis, unspecified site; H40.9 Unspecified glaucoma; R07.89 Other chest pain; Z79.02 Long term (current) use of antithrombotics/antiplatelets; Z79.82 Long term (current) use of aspirin; Z79.899 Other long term (current) drug therapy; Z20.822 Contact with and (suspected) exposure to COVID-19; Z86.73 Personal history of transient ischemic attack (TIA), and cerebral infarction without residual deficits; Z85.828 Personal history of other malignant neoplasm of skin; Z86.718 Personal history of other venous thrombosis and embolism; Z86.19 Personal history of other infectious and parasitic diseases; Z98.42 Cataract extraction status, left eye; Z98.41 Cataract extraction status, right eye; Z98.890 Other specified postprocedural states; Z80.51 Family history of malignant neoplasm of kidney
CPT/HCPCS: 96365; 96372 ×2; 99285; 36415; 93005; 93306; 97161; 85379; 80053; 80048 ×2; 83735; 84484 ×2; 85025 ×2; 85610; 85730; 87636; 71045; 72125; 70496; 70498; 70553; G0378 ×2; J1650 ×2; J3480; A9585; Q9967

== ENCOUNTER 2022-09-23 11:13 | Emergency (ER) | payer MEDICARE, BC ==
[2022-09-23 11:23] VITALS: TEMP 98.1
--- NOTE | 2022-09-23 12:35 | ED ---
General Adult HPI - General Chief complaint: Neuro Symptoms/Deficit Stated complaint: Poss Stroke Time Seen by Provider: 09/23/22 11:20 Source: patient, family, RN notes reviewed, old records reviewed Mode of arrival: ambulatory Limitations: no limitations - History of Present Illness Initial comments: This is an 86-year-old female presents to the emergency department because the daughter was taken to the store she noticed some slurred speech and drooping face it lasts about 20 minutes and completely resolved. Patient herself has no complaint. Patient denies any headache. Patient denies any numbness weakness. Patient denies any slurred speech at this time. Patient denies any chest pain difficult breathing shortest breath. Patient states she did have a TIA before. Patient denies any recent injury or trauma. Patient denies any recent fever chills or cough. - Related Data Home Medications Medication Instructions Recorded Confirmed Aspirin EC [Ecotrin Low Dose] 81 mg PO DAILY 09/30/14 09/23/22 Latanoprost [Latanoprost 0.005%] 1 drop BOTH EYES HS 09/30/14 09/23/22 Atorvastatin [Lipitor] 40 mg PO HS 11/14/20 09/23/22 Celecoxib [CeleBREX] 200 mg PO DAILY 09/23/22 09/23/22 Clopidogrel [Plavix] 75 mg PO DAILY 09/23/22 09/23/22 Ibuprofen [Motrin] 600 mg PO TID PRN 09/23/22 09/23/22 Allergies Allergy/AdvReac Type Severity Reaction Status Date / Time No Known Allergies Allergy Verified 09/23/22 12:39 Review of Systems ROS Statement: Those systems with pertinent positive or pertinent negative responses have been documented in the HPI. ROS Other: All systems not noted in ROS Statement are negative. Past Medical History Past Medical History: Cancer, Deep Vein Thrombosis (DVT), GERD/Reflux, Osteoarthritis (OA) Additional Past Medical History / Comment(s): SKIN CA LEG., RT LOWER BACK PAIN, HX OF LYMES DISEASE. GLAUCOMA. History of Any Multi-Drug Resistant Organisms: None Reported Additional Past Surgical History / Comment(s): PHILLIP CATARACTS, D&C, MUSCLE BX. Past Anesthesia/Blood Transfusion Reactions: No Reported Reaction, Family History of Problems w/ Anesthesia Additional Past Anesthesia/Blood Transfusion Reaction / Comment(s): SISTER WOKE UP CONFUSED. Past Psychological History: No Psychological Hx Reported Smoking Status: Never smoker Past Alcohol Use History: Occasional Past Drug Use History: None Reported - Past Family History Sister(s) Family Medical History: Cancer Additional Family Medical History / Comment(s): KIDNEY CA General Exam - General Exam Comments Initial Comments: GENERAL: Patient is well-developed and well-nourished. Patient is nontoxic and well- hydrated and is in no acute distress. ENT: Neck is soft and supple. No significant lymphadenopathy is noted. Oropharynx is clear. Moist mucous membranes. Neck has full range of motion without eliciting any pain. EYES: The sclera were anicteric and conjunctiva were pink and moist. Extraocular movements were intact and pupils were equal round and reactive to light. Eyelids were unremarkable. PULMONARY: Unlabored respirations. Good breath sounds bilaterally. No audible rales rhonchi or wheezing was noted. CARDIOVASCULAR: There is a regular rate and rhythm without any murmurs gallops or rubs. ABDOMEN: Soft and nontender with normal bowel sounds. SKIN: Skin is clear with no lesions or rashes and otherwise unremarkable. NEUROLOGIC: Patient is alert and oriented x3. Cranial nerves II through XII are grossly intact. Motor and sensory are also intact. Normal speech, volume and content. Symmetrical smile. NIH at this point is 0 MUSCULOSKELETAL: Normal extremities with adequate strength and full range of motion. No lower extremity swelling or edema. No calf tenderness. LYMPHATICS: No significant lymphadenopathy is noted PSYCHIATRIC: Normal psychiatric evaluation. Limitations: no limitations Course Vital Signs 09/23/22 09/23/22 11:19 13:00 Temperature 98.1 F 98.1 F Pulse Rate 84 85 Respiratory 16 18 Rate Blood Pressure 183/91 141/98 O2 Sat by Pulse 99 98 Oximetry Medical Decision Making - Medical Decision Making EKG as interpreted by myself and shows a sinus rhythm at 79 bpm MO interval is on a 58 QRSs 147 QT intervals 422 QTC is 457. Patient's EKG shows a right bundle branch block is no ST segment elevation or depression. Was pt. sent in by a medical professional or institution (, PA, SEEDLING PULLER, urgent care, hospital, or shelter...) When possible be specific @ -No Did you speak to anyone other than the patient for history (EMS, parent, family, police, friend...)? What history was obtained from this source @ -The daughter gave most of the history since she was the one observing the symptoms Did you review nursing and triage notes (agree or disagree)? Why? @ -I reviewed and agree with nursing and triage notes Were old charts reviewed (outside hosp., previous admission, EMS record, old EKG, old radiological studies, urgent care reports/EKG's, shelter records)? Report findings @ -I reviewed patient's previous lab work and radiological studies Differential Diagnosis (chest pain, altered mental status, abdominal pain women, abdominal pain men, vaginal bleeding, weakness, fever, dyspnea, syncope, he adache, dizziness, GI bleed, back pain, seizure, CVA, palpatations, mental health, musculoskeletal)? @ -MDM differential stroke EKG interpreted by me (3pts min.). @ -As above X-rays interpreted by me (1pt min.). @ -Chest x-ray was interpreted by myself and I see no acute abnormalities CT interpreted by me (1pt min.). @ -CT of the brain was interpreted by myself there is a small parenchymal bleed in the superior right parietal region. CTA was interpreted by the radiologist and that showed no acute abnormality. U/S interpreted by me (1pt. min.). @ -None done What testing was considered but not performed or refused? (CT, X-rays, U/S, labs)? Why? @ -None What meds were considered but not given or refused? Why? @ -None Did you discuss the management of the patient with other professionals (professionals i.e. , PA, SEEDLING PULLER, lab, RT, psych nurse, social work therapist, supervisor yard, teacher, security officer, caser)? Give summary @ -Dr. Tapia and he wanted the patient transferred [facility]. Spoke with the [facility] and they agreed to accept transfer. Was smoking cessation discussed for >3mins.? @ -No Was critical care preformed (if so, how long)? @ -35 minutes Were there social determinants of health that impacted care today? How? (Homelessness, low income, unemployed, alcoholism, drug addiction, trans portation, low edu. Level, literacy, decrease access to med. care, correction, rehab)? @ -No Was there de-escalation of care discussed even if they declined (Discuss DNR or withdrawal of care, Hospice)? DNR status @ -No What co-morbidities impacted this encounter? (DM, HTN, Smoking, COPD, CAD, Cancer, CVA, ARF, Chemo, Hep., AIDS, mental health diagnosis, sleep apnea, morbid obesity)? @ -None Was patient admitted / discharged? Hospital course, mention meds given and route, prescriptions, significant lab abnormalities, going to OR and other pertinent info. @ -CAT scan of the head showed a small intraparenchymal hemorrhage in the left superior parietal region. I spoke with Dr. Tapia he wanted the patient sent to [facility] I spoke with the transfer team a [facility] and they accepted the transfer Undiagnosed new problem with uncertain prognosis? @ -No Drug Therapy requiring intensive monitoring for toxicity (Heparin, Nitro, Insulin, Cardizem)? @ -No Were any procedures done? @ -No Diagnosis/symptom? @ -Intraparenchymal hemorrhage Acute, or Chronic, or Acute on Chronic? @ -Acute Uncomplicated (without systemic symptoms) or Complicated (systemic symptoms)? @ -Complicated Side effects of treatment? @ -No Exacerbation, Progression, or Severe Exacerbation? @ -No Poses a threat to life or bodily function? How? (Chest pain, [place], [place], pneumonia, PE, COPD, DKA, ARF, appy, cholecystitis, CVA, Diverticulitis, Homicidal, Suicidal, threat to staff... and all critical care pts) @ -Yes this could lead to a larger bleed in significant deficit or - Lab Data Result diagrams: 09/23/22 12:03 09/23/22 12:03 Lab Results 09/23/22 09/23/22 09/23/22 Range/Units 12:03 12:03 12:03 WBC 6.3 (3.8-10.6) k/uL RBC 4.23 (3.80-5.40) m/uL Hgb 13.0 (11.4-16.0) gm/dL Hct 38.3 (34.0-46.0) % MCV 90.7 (80.0-100.0) fL MCH 30.8 (25.0-35.0) pg MCHC 34.0 (31.0-37.0) g/dL RDW 13.6 (11.5-15.5) % Plt Count 177 (150-450) k/uL MPV 8.4 Neutrophils % 71 % Lymphocytes % 16 % Monocytes % 8 % Eosinophils % 4 % Basophils % 1 % Neutrophils # 4.5 (1.3-7.7) k/uL Lymphocytes # 1.0 (1.0-4.8) k/uL Monocytes # 0.5 (0-1.0) k/uL Eosinophils # 0.3 (0-0.7) k/uL Basophils # 0.0 (0-0.2) k/uL PT 10.9 (9.0-12.0) sec INR 1.0 (<1.2) APTT 22.5 (22.0-30.0) sec Sodium 142 (137-145) mmol/L Potassium 4.2 (3.5-5.1) mmol/L Chloride 107 (98-107) mmol/L Carbon Dioxide 24 (22-30) mmol/L Anion Gap 11 mmol/L BUN 18 H (7-17) mg/dL Creatinine 0.75 (0.52-1.04) mg/dL Est GFR (CKD-EPI)AfAm 84 (>60 ml/min/1.73 sqM) Est GFR (CKD-EPI)NonAf 73 (>60 ml/min/1.73 sqM) Glucose 119 H (74-99) mg/dL Calcium 9.5 (8.4-10.2) mg/dL Total Bilirubin 1.3 (0.2-1.3) mg/dL AST 31 (14-36) U/L ALT 22 (4-34) U/L Alkaline Phosphatase 108 (38-126) U/L Creatine Kinase (30-135) U/L Troponin I (0.000-0.034) ng/mL Total Protein 7.5 (6.3-8.2) g/dL Albumin 4.7 (3.5-5.0) g/dL 09/23/22 09/23/22 Range/Units 12:03 12:03 WBC (3.8-10.6) k/uL RBC (3.80-5.40) m/uL Hgb (11.4-16.0) gm/dL Hct (34.0-46.0) % MCV (80.0-100.0) fL MCH (25.0-35.0) pg MCHC (31.0-37.0) g/dL RDW (11.5-15.5) % Plt Count (150-450) k/uL MPV Neutrophils % % Lymphocytes % % Monocytes % % Eosinophils % % Basophils % % Neutrophils # (1.3-7.7) k/uL Lymphocytes # (1.0-4.8) k/uL Monocytes # (0-1.0) k/uL Eosinophils # (0-0.7) k/uL Basophils # (0-0.2) k/uL PT (9.0-12.0) sec INR (<1.2) APTT (22.0-30.0) sec Sodium (137-145) mmol/L Potassium (3.5-5.1) mmol/L Chloride (98-107) mmol/L Carbon Dioxide (22-30) mmol/L Anion Gap mmol/L BUN (7-17) mg/dL Creatinine (0.52-1.04) mg/dL Est GFR (CKD-EPI)AfAm (>60 ml/min/1.73 sqM) Est GFR (CKD-EPI)NonAf (>60 ml/min/1.73 sqM) Glucose (74-99) mg/dL Calcium (8.4-10.2) mg/dL Total Bilirubin (0.2-1.3) mg/dL AST (14-36) U/L ALT (4-34) U/L Alkaline Phosphatase (38-126) U/L Creatine Kinase 51 (30-135) U/L Troponin I <0.012 (0.000-0.034) ng/mL Total Protein (6.3-8.2) g/dL Albumin (3.5-5.0) g/dL Critical Care Time Critical Care Time: Yes Total Critical Care Time: 35 Disposition Clinical Impression: Intraparenchymal hemorrhage of brain Disposition: OTHER INSTITUTION NOT DEFINED Referrals: Edward Melendrez MD [Primary Care Provider] - 1-2 days Time of Disposition: 13:43 - Out of Hospital Transfer - Req. Specs Out of Hospital Transfer - Requested Specifics: Other Emergency Center ([facility])
[2022-09-23 12:36] LABS: Basophils % (A) 1 %; Eosinophils # (A) 0.3 k/uL (0-0.7); Eosinophils % (A) 4 %; HCT 38.3 % (34.0-46.0); Lymphocytes % (A) 16 %; MCH 30.8 pg (25.0-35.0); MCV 90.7 fL (80.0-100.0); Mean Platelet Volume 8.4; Monocytes # (A) 0.5 k/uL (0-1.0); Monocytes % (A) 8 %; Neutrophils # (A) 4.5 k/uL (1.3-7.7); Neutrophils % (A) 71 %; Platelet Count 177 k/uL (150-450); RBC 4.23 m/uL (3.80-5.40); RDW 13.6 % (11.5-15.5); WBC 6.3 k/uL (3.8-10.6)
[2022-09-23 12:47] LABS: Partial Thromboplastin Time 22.5 sec (22.0-30.0); Prothrombin Time 10.9 sec (9.0-12.0)
[2022-09-23 12:50] LABS: Albumin 4.7 g/dL (3.5-5.0); Calcium 9.5 mg/dL (8.4-10.2); Potassium 4.2 mmol/L (3.5-5.1); Total Bilirubin 1.3 mg/dL (0.2-1.3); Total Protein 7.5 g/dL (6.3-8.2)
--- NOTE | 2022-09-23 12:50 | XR ---
EXAMINATION TYPE: XR chest 2V DATE OF EXAM: 09/23/2022 COMPARISON: 11/13/2020 HISTORY: 86-year-old female stroke symptoms. TECHNIQUE: AP and lateral views FINDINGS: Patient rotated towards the left altering the normal cardiac mediastinal contours. There is some dext roconvex curvature of the thoracic spine. Hyperinflation. Mild interstitial prominence is unchanged. Mild cardiomegaly redemonstrated. IMPRESSION: Stable mild cardiomegaly and COPD. Chronic changes. No acute process seen.
[2022-09-23 13:26] VITALS: RESP 18
--- NOTE | 2022-09-23 13:32 | CT ---
EXAMINATION TYPE: CT angio head neck DATE OF EXAM: 09/23/2022 HISTORY: Neurological deficit COMPARISON: CT scan 09/20/2022 CT DLP: 1501.2 mGycm. Automated Exposure Control for Dose Reduction was Utilized. TECHNIQUE: CTA scan of the head and neck is performed with IV Contrast, patient injected with 75 cc mL of Isovue 370, axial images are obtained, coronal and sagittal reformatted images are reviewed. 3D reconstructed images are created on an independent workstation and reviewed. FINDINGS: Mild emphysematous changes are seen with biapical pleural thickening. Visualized common carotid arteries are widely patent. There is mild atherosclerotic plaque involving the carotid bifurcation bilaterally with no significant stenosis. Subcentimeter right-sided thyroid nodule noted. Hypertrophic and degenerative changes of the spine. S clerotic density in upper thoracic segment most typical bone island. Vertebral arteries are symmetric in size. Vertebral basilar system is patent. Intracranial mild ather osclerotic change of the cavernous segment of the ICA on the left. Visualized MCA enhances normally b ilaterally ECA enhances normally bilaterally A1 segment of the right anterior cerebral artery is somewhat diminu tive Posterior cerebral arteries enhance normally. There appears to be no evidence suggest sizable aneurys m. IMPRESSION: 1. No significant carotid artery bifurcation stenosis. 2. No definite intracranial stenosis or occlusion 3. See dictation regarding noncontrast head CT suspicious for a petechial hemorrhage medial superior cortex left parietal lobe. NASCET criteria was used in interpretation of this exam?
--- NOTE | 2022-09-23 13:33 | CT ---
EXAMINATION TYPE: CT brain wo con DATE OF EXAM: 09/23/2022 COMPARISON: 09/20/2022 HISTORY: Mental status change CT DLP: 1501.2 mGycm Automated exposure control for dose reduction was used. FINDINGS: There is moderate generalized degenerative change with diffuse areas of low attenuation throughout th e white matter. There is a tiny hyperdensity within the sulcus of the left superior parietal medial c ortex suspicious for a petechial hemorrhage. No midline shift or mass effect.report called to the [facility] ER physician at 12:55 PM 09/23/2022 IMPRESSION: 1. THERE IS A NEW AREA OF LINEAR 5 MM HYPERDENSITY SEEN ON AXIAL IMAGE 46 WITHIN THE LEFT SUPERIOR PA RIETAL CORTEX SUSPICIOUS FOR A TINY AREA OF PETECHIAL HEMORRHAGE. 2. DEGENERATIVE AND NONSPECIFIC WHITE MATTER CHANGE MOST "REMOTE ISCHEMIA
[2022-09-23] MEDS ORDERED: niCARdipine 20 MG in SODIUM CHLORIDE 0.9% 192 ML IV SCH (14:30)
[2022-09-23 15:06] VITALS: BP 145/68; PULSE 96
== END 2022-09-23 14:50 | disposition other institution (70) ==
LOC: EC 11:13
DX: I61.8 Other nontraumatic intracerebral hemorrhage (principal); M19.90 Unspecified osteoarthritis, unspecified site; Z86.718 Personal history of other venous thrombosis and embolism; Z79.82 Long term (current) use of aspirin; Z79.02 Long term (current) use of antithrombotics/antiplatelets; Z79.899 Other long term (current) drug therapy
CPT/HCPCS: 96365 ×2; 99291 ×2; 36415; 93005; 80053; 82550; 84484; 85025; 85610; 85730; 71046; 70496; 70450; 70498; Q9967

== ENCOUNTER 2022-10-01 17:15 | Emergency (ER) | payer MEDICARE, BC ==
[2022-10-01 17:56] VITALS: TEMP 99.4
[2022-10-01] MEDS ORDERED: IBUPROFEN 400 MG TAB PO STA (19:20)
[2022-10-01] MEDS ORDERED: ACETAMINOPHEN TAB 325 MG TAB PO STA (19:20)
[2022-10-01 19:36] VITALS: BP 136/62; PULSE 85; RESP 18
--- NOTE | 2022-10-01 19:49 | XR ---
EXAMINATION TYPE: XR chest 2V DATE OF EXAM: 10/01/2022 COMPARISON: NONE HISTORY: Cough and congestion TECHNIQUE: 2 views FINDINGS: Heart is normal. Lungs are clear of infiltrate. No heart failure. There is upper thoracic m ild kyphosis. There are no hilar masses. There is some flattening of the diaphragm. IMPRESSION: No active cardiopulmonary disease. There is probably COPD. No change.
--- NOTE | 2022-10-01 20:41 | ED ---
URI HPI - General Chief Complaint: Upper Respiratory Infection Stated Complaint: sob - COVID+ Time Seen by Provider: 10/01/22 19:20 Source: patient, family Mode of arrival: ambulatory Limitations: no limitations - History of Present Illness Initial Comments: This patient is an 86-year-old woman who presents to have evaluation for shortness of breath. The patient notes over the past day to 2 she has been developing cough, generalized fatigue and weakness, and today was short of breath. When I see the patient and she is resting in bed she states she is not dyspneic. No hemoptysis. She did test positive for carona virus infection this morning. Complaint: fever, other -: days(s) Consistency: constant Improves With: nothing Worsens With: nothing Context: sick contacts Associated Symptoms: fever, chills, cough, shortness of breath - Related Data Home Medications Medication Instructions Recorded Confirmed Aspirin EC [Ecotrin Low Dose] 81 mg PO HS 09/30/14 10/01/22 Latanoprost [Latanoprost 0.005%] 1 drop BOTH EYES HS 09/30/14 10/01/22 Atorvastatin [Lipitor] 40 mg PO HS 11/14/20 10/01/22 Celecoxib [CeleBREX] 200 mg PO HS 09/23/22 10/01/22 Clopidogrel [Plavix] 75 mg PO HS 09/23/22 10/01/22 Ibuprofen [Motrin] 600 mg PO TID PRN 09/23/22 10/01/22 hydrALAZINE HCL [Apresoline] 25 mg PO BID 10/01/22 10/01/22 Previous Rx's Medication Instructions Recorded Albuterol Inhaler [Ventolin Hfa 1 - 2 puff INHALATION Q6HR PRN #1 10/01/22 Inhaler] each Azithromycin [Zithromax] 0 mg PO DIRECTED #6 tab 10/01/22 Allergies Allergy/AdvReac Type Severity Reaction Status Date / Time No Known Allergies Allergy Verified 10/01/22 20:51 Review of Systems ROS Statement: Those systems with pertinent positive or pertinent negative responses have been documented in the HPI. ROS Other: All systems not noted in ROS Statement are negative. Constitutional: Reports: fever, weakness Respiratory: Reports: cough, dyspnea. Denies: hemoptysis Cardiovascular: Denies: chest pain, palpitations, orthopnea, edema, syncope Gastrointestinal: Denies: abdominal pain, vomiting, diarrhea Genitourinary: Denies: dysuria, hematuria Musculoskeletal: Denies: back pain Skin: Denies: rash Neurological: Denies: headache Past Medical History Past Medical History: Cancer, CVA/TIA, Deep Vein Thrombosis (DVT), GERD/Reflux, Osteoarthritis (OA) Additional Past Medical History / Comment(s): SKIN CA LEG., RT LOWER BACK PAIN, HX OF LYMES DISEASE. GLAUCOMA. COVID 10/01/22 History of Any Multi-Drug Resistant Organisms: None Reported Additional Past Surgical History / Comment(s): PHILLIP CATARACTS, D&C, MUSCLE BX. Past Anesthesia/Blood Transfusion Reactions: No Reported Reaction, Family History of Problems w/ Anesthesia Additional Past Anesthesia/Blood Transfusion Reaction / Comment(s): SISTER WOKE UP CONFUSED. Past Psychological History: No Psychological Hx Reported Smoking Status: Never smoker Past Alcohol Use History: Occasional Past Drug Use History: None Reported - Past Family History Sister(s) Family Medical History: Cancer Additional Family Medical History / Comment(s): KIDNEY CA General Exam Limitations: no limitations General appearance: alert, in no apparent distress Head exam: Present: atraumatic, normocephalic Eye exam: Present: normal appearance. Absent: scleral icterus, conjunctival injection ENT exam: Present: normal oropharynx Neck exam: Present: normal inspection Respiratory exam: Present: normal lung sounds bilaterally. Absent: respiratory distress, wheezes, rales, rhonchi, stridor, accessory muscle use, decreased breath sounds, prolonged expiratory Cardiovascular Exam: Present: regular rate, normal rhythm, normal heart sounds. Absent: systolic murmur, diastolic murmur, rubs, gallop GI/Abdominal exam: Present: soft. Absent: distended, tenderness, guarding Extremities exam: Present: normal inspection, normal capillary refill. Absent: pedal edema, calf tenderness Back exam: Present: normal inspection. Absent: CVA tenderness (R), CVA tenderness (L) Neurological exam: Present: alert Skin exam: Present: warm, dry, intact, normal color. Absent: rash Course Vital Signs 10/01/22 10/01/22 17:51 19:35 Temperature 99.4 F Pulse Rate 104 H 85 Respiratory 20 18 Rate Blood Pressure 145/78 136/62 O2 Sat by Pulse 96 95 Oximetry Medical Decision Making - Medical Decision Making Patient is an 86-year-old woman who returns to have evaluation for episodic dyspnea. It appears that this may have been related when her fever spiked, as the patient was feeling better following antipyretics. Discussed appropriate further care and follow-up with patient and family. She would like to go home. She will return if symptoms recur if she is worse in anyway. Return parameters discussed. The patient had a chest x-ray which I interpreted as not showing acute infiltrate, pneumothorax, congestive heart failure. Was pt. sent in by a medical professional or institution (, PA, CUSTOMER SUPPORT COORDINATOR, urgent care, hospital, or fci...) When possible be specific @ -[No] Did you speak to anyone other than the patient for history (EMS, parent, family, police, friend...)? What history was obtained from this source @ -[Family present Did you review nursing and triage notes (agree or disagree)? Why? @ -[I reviewed and agree with nursing and triage notes] Were old charts reviewed (outside hosp., previous admission, EMS record, old EKG, old radiological studies, urgent care reports/EKG's, fci records)? Report findings @ -[No old charts were reviewed] Differential Diagnosis (chest pain, altered mental status, abdominal pain women, abdominal pain men, vaginal bleeding, weakness, fever, dyspnea, syncope, headache, dizziness, GI bleed, back pain, seizure, CVA, palpatations, mental health, musculoskeletal)? @ -[Differential Dyspnea: Coronary syndrome, arrhythmia, tamponade, asthma, COPD, pulmonary embolism, pneumonia, pneumothorax, pulmonary effusion, anaphylaxis, diabetic ketoacidosis, flailed chest, pulmonary contusion, diaphragmatic rupture, anemia, neuromuscular, this is not meant to be an all-inclusive list. EKG interpreted by me (3pts min.). @ -[ X-rays interpreted by me (1pt min.). @ -[As above CT interpreted by me (1pt min.). @ -[None done] U/S interpreted by me (1pt. min.). @ -[None done] What testing was considered but not performed or refused? (CT, X-rays, U/S, labs)? Why? @ -[None] What meds were considered but not given or refused? Why? @ -[None] Did you discuss the management of the patient with other professionals (professionals i.e. , PA, CUSTOMER SUPPORT COORDINATOR, lab, RT, psych nurse, web content & social media manager, management department chair, teacher, campus police officer, watch case polisher)? Give summary @ -[No] Was smoking cessation discussed for >3mins.? @ -[No] Was critical care preformed (if so, how long)? @ -[No] Were there social determinants of health that impacted care today? How? (Homelessness, low income, unemployed, alcoholism, drug addiction, transportation, low edu. Level, literacy, decrease access to med. care, residential, rehab)? @ -[No] Was there de-escalation of care discussed even if they declined (Discuss DNR or withdrawal of care, Hospice)? DNR status @ -[No] What co-morbidities impacted this encounter? (DM, HTN, Smoking, COPD, CAD, Cancer, CVA, ARF, Chemo, Hep., AIDS, mental health diagnosis, sleep apnea, morbid obesity)? @ -[None] Was patient admitted / discharged? Hospital course, mention meds given and route, prescriptions, significant lab abnormalities, going to OR and other pertinent info. @ -[Discharged Undiagnosed new problem with uncertain prognosis? @ -[No] Drug Therapy requiring intensive monitoring for toxicity (Heparin, Nitro, Insulin, Cardizem)? @ -[No] Were any procedures done? @ -[No] Diagnosis/symptom? @ -[Acute COVID-19 infection, uncomplicated Acute, or Chronic, or Acute on Chronic? @ -[default] Uncomplicated (without systemic symptoms) or Complicated (systemic symptoms)? @ -[default] Side effects of treatment? @ -[No] Exacerbation, Progression, or Severe Exacerbation? @ -[No] Poses a threat to life or bodily function? How? (Chest pain, [place], [place], pneumonia, PE, COPD, DKA, ARF, appy, cholecystitis, CVA, Diverticulitis, Homicidal, Suicidal, threat to staff... and all critical care pts) @ -[No] Disposition Clinical Impression: COVID-19 Disposition: HOME SELF-CARE Condition: Good Instructions (If sedation given, give patient instructions): COVID-19 (Coronavirus Disease 2019) (ED) Prescriptions: Albuterol Inhaler [Ventolin Hfa Inhaler] 1 - 2 puff INHALATION Q6HR PRN #1 each PRN Reason: Wheezing Azithromycin [Zithromax] 0 mg PO DIRECTED #6 tab Is patient prescribed a controlled substance at d/c from ED?: No Referrals: Edward Melendrez MD [Primary Care Provider] - 1-2 days
== END 2022-10-01 21:28 | disposition home or self-care (01) ==
LOC: EC 17:15
DX: U07.1 COVID-19 (principal); M19.90 Unspecified osteoarthritis, unspecified site; Z86.73 Personal history of transient ischemic attack (TIA), and cerebral infarction without residual deficits; Z79.1 Long term (current) use of non-steroidal anti-inflammatories (NSAID); Z79.82 Long term (current) use of aspirin
CPT/HCPCS: 71046; 99285